=== PATIENT | female | born 1980 | race Caucasian/White ===

== ENCOUNTER 2018-11-15 09:28 | Inpatient (IN) | payer OTHER ==
[~2018-11-15] VITALS: Ht 172.7 cm; Wt 69.1 kg
[2018-11-18 17:44] VITALS: Ht 172.7 cm; Wt 69.1 kg
[2018-11-18] MEDS ORDERED: METHYLERGONOVINE 0.2 MG INJ IM PRN (18:00)
[2018-11-18] MEDS ORDERED: CEFAZOLIN 2 GM/50 ML (PMX) 50 ML IVPB SCH (18:00)
[2018-11-18] MEDS ORDERED: CARBOPROST 250 MCG INJ IM PRN (18:00)
[2018-11-18] MEDS ORDERED: MISOPROSTOL 200 MCG TAB PR PRN ×2 (18:00→22:30)
[2018-11-18] MEDS ORDERED: OXYTOCIN 30 UNITS/LR 500 ML IV PRN (18:00)
[2018-11-18] MEDS: LACTATED RINGER'S 1,000 ML IV SCH (18:17)
[2018-11-18] MEDS ORDERED: LACTATED RINGER'S 1,000 ML IV SCH (22:18)
--- NOTE | 2018-11-18 22:18 | HP ---
Date/Time of Note Date/Time of Note DATE: 11/18/18 TIME: 22:16 OB - History Hx of Present Free Text/Dictation 38 YO with EDC 11/22/2018 with IUP at 39.3 weeks with history of previous delivery, who desires to have repeat delivery and Permanent sterilization. I discussed with the patient the risks, benefits, indications, and alternatives of procedure including but not limited to risks of infection, bleeding, damage to other organs, bowel, bladder, hernia formation, scar formation, possibility of blood transfusion, possible need for emergency hysterectomy, as well as the fact that tubal ligation may fail and there is 1 to 2% risk of failure over lifetime of tubal ligations and the fact that tubal ligation is permanent and irreversible. She was allowed to ask questions. All her questions were answered. Informed consent has been obtained. Care: Good Care Ultrasounds: Normal mid trimester US Obstetrical Complications: None Medical Complications: None Past Family/Social History * Past Medical, Surgical, Family and Obstetric Histories reviewed from chart. OB Admission Exam Physical Exam HEENT: WNL Heart: Rhythm Normal Lungs: Clear, Equal Abdomen: WNL Extremities: Normal Reflexes: Normal Last 72 hours Lab Results CBC & BMP 11/18/18 18:15 OB Assessment/Plan Other Assessment: IUP at 39.3 weeks Desires repeat c/s and BTL Other plan: Repeat c/s and BTL CHERRY NAIR MD Nov 18, 2018 22:18
[2018-11-18] MEDS ORDERED: NA PHOSPHATE/BIPHOS 133 ML ENEMA PR PRN (22:30)
[2018-11-18] MEDS ORDERED: LANOLIN HPA 1 PKT TOP PRN (22:30)
[2018-11-18] MEDS ORDERED: OXYCODONE/ACETAMINOPHEN (5/325) TAB PO PRN (22:30)
--- NOTE | 2018-11-18 22:54 | PREAC ---
Date/Time of Note Date/Time of Note DATE: 11/18/18 TIME: 22:52 Anesthesia Eval and Record Evaluation Time Pre-Procedure Interview DATE: 11/18/18 TIME: 22:52 Age 38 Sex female NPO: 8 hrs Preoperative diagnosis IUP Planned procedure Repeat C/Section Past Medical History Past Medical History: Includes GI: Obesity : : Surgery & Anesthesia Issues No known issue Meds Anticoagulation: No Beta Maldonado within 24 hr: No Reason Beta Maldonado not given: Pt. not on B-Maldonado Current Medications Lactated Ringer's 1,000 ml @ 125 mls/hr Q8H IV Last administered on 11/18/18at 18:17; Admin Dose 125 MLS/HR; Start 11/18/18 at 17:39 Cefazolin Sodium/ Dextrose 50 ml @ 100 mls/hr ONCE IVPB ; Start 11/18/18 at 18:0 0 Oxytocin/Lactated Ringer's 500 ml @ 125 mls/hr POST IV ; Start 11/18/18 at 18:00 Oxytocin/Lactated Ringer's 500 ml @ 0 mls/hr ONCE PRN IV .VAGINAL BLEEDING; Start 11/18/18 at 18:00 Methylergonovine Maleate (Methergine) 0.2 mg ONCE PRN IM .VAGINAL BLEEDING; Start 11/18/18 at 18:00 Carboprost Tromethamine (Hemabate) 250 mcg ONCE PRN IM .VAGINAL BLEEDING; Start 11/18/18 at 18:00 Lactated Ringer's 1,000 ml @ 125 mls/hr Q8H IV ; Start 11/18/18 at 22:18; Stop 11/19/18 at 02:17 Oxycodone/ Acetaminophen (Percocet (5/ 325)) 1 tab Q4H PRN PO .PAIN 4-6; Start 11/18/18 at 22:30 Oxycodone/ Acetaminophen (Percocet (5/ 325)) 2 tab Q4H PRN PO .PAIN 7-10; Start 11/18/18 at 22:30 Ibuprofen (Motrin) 600 mg Q6 PO ; Start 11/19/18 at 00:00 Simethicone (Mylicon) 160 mg Q8H PRN PO .GAS; Start 11/18/18 at 22:30 Senna/Docusate Sodium (Senokot-S) 1 tab BID PO ; Start 11/19/18 at 09:00 Sodium Biphosphate/ Sodium Phosphate (Fleet Enema) 133 ml DAILY PRN [place] .CONSTIPATION; Start 11/18/18 at 22:30 Lanolin (Lanolin Hpa) 1 applic BEDSIDE MEDICATION PRN TOP .NIPPLES; Start 11/18/18 at 22:30 Diphtheria/ Tetanus/Acell Pertussis (Adacel) 0.5 ml ONCE ONCE IM* ; Start 11/21/18 at 09:00; Stop 11/21/18 at 09:01 Measles/Mumps/ Rubella Vaccine Live (Mmr Ii Vaccine) 0.5 ml ONCE ONCE SC* ; Start 11/21/18 at 09:00; Stop 11/21/18 at 09:01 Misoprostol (Cytotec) 1,000 mcg ONCE PRN [place] .VAGINAL BLEEDING; Start 11/18/18 at 22:30 Meds reviewed: Yes Allergies Coded Allergies: No Known Allergy (Unverified , 11/18/18) Allergies Reviewed: Yes Labs/Studies Labs Reviewed: Reviewed by anesthesiologist Result Diagram: 11/18/18 1815 Laboratory Tests 11/18/18 18:15 Blood Bank Test 11/18/18 18:15 Antibody Screen NEGATIVE Blood Type O POSITIVE Rh Immune Globulin Candidate NO test: Positive Studies: ECG Pre-procedure Exam Last vitals BP:112/56, P:84, Spo2:100%, T:98,9 Airway: Adequate mouth opening, Adequate thyromental dist Mallampati: Mallampati II Teeth: Normal Lung: Normal Heart: Normal ASA Physical Status ASA physical status: 2 Emergency: None Planned Anesthetic Neuraxial: Spinal Planned Pain Management Sub-arachniod narcotics, Parenteral pain med Pre-operative Attestations Prior to commencing anesthesia and surgery, the patient was re-evaluated, there was verification of: *The patient's identity *The results of appropriate recent lab work and preoperative vital signs *The above evaluation not changing prior to induction *Anesthetic plan, risk benefits, alternative and complications discussed with patient/family; questions answered; patient/family understands, accepts and wishes to proceed. WALLY BLANCHARD MD Nov 18, 2018 22:54
[2018-11-18] MEDS ORDERED: OXYTOCIN 10 UNIT INJ ONE (23:45)
[2018-11-18] MEDS ORDERED: morphine SULFATE/PF (10 MG/10 ML) INJ ONE (23:45)
[2018-11-18] MEDS ORDERED: ONDANSETRON 4 MG INJ ONE (23:45)
--- NOTE | 2018-11-19 00:56 | OPR ---
Date/Time of Note Date/Time of Note DATE: 11/19/18 TIME: 00:53 Operative Report Procedure Date: Nov 19, 2018 Preoperative Diagnosis Desires repeat deliver and permanent sterilization Postoperative Diagnosis Same Operation/Procedure Performed Repeat Delivery Bilateral Salpingectomies Surgeon Swetha Quinn MD Entry Level [employer]st Dr. Munoz Anesthesia Type: spinal Estimated Blood Loss: other (700 ml) Transfusion none Specimen Segments of bilateral tubes Grafts/Implants none Tubes/Drains Huber Cath Complications none Pt Condition Post Procedure: stable Disposition: PACU Procedure Description DATE OF OPERATION: The risks, benefits, indications, alternatives of procedure including, but not limited to risk of infection, bleeding, damage to other organs, bowel, bladder, hernia formation, scar formation, possibility of blood transfusions, the risks of tubal ligation such as failure and future pregnancies were discussed with the patient. The fact that BTL is permanent and irreversible also discussed with patient. She was allowed to ask questions. All her questions were answered. Informed consent was obtained. DESCRIPTION OF PROCEDURE: She was taken to the operating room. Spinal anesthesia was induced. She was prepped and draped in the usual sterile fashion. Surgical time out one. Anesthesia was tested to be adequate. With permission from anesthesiologist, a knife was used to make a Pfannenstiel skin incision. The incision was taken down in layers. The fascia was cut, undermined and from the underlying muscle using sharp and blunt dissection. All the bleeders were cauterized. Peritoneum was entered bluntly. A low transverse incision was developed over the uterus. Amniotic fluid was clear and adequate. A viable in vertex presentation was delivered without any difficulty. The cord was clamped and cut, handed to awaiting team. Placenta was then delivered. Uterus was exteriorized, wrapped around a moist lap. Inside uterus was cleaned using a dry lap. All residual membranes were removed. The uterine incision was then closed using #1 Monocryl in 2 layers. A 5 cm distal end of the right tube was ligated 3 times using 0 plain tie and the ligated portion was cut, sent to pathology. Same procedure was done on the contralateral side. The uterus was inserted back inside the abdominal cavity. Irrigation was done carefully. Careful evaluation of the uterine incision revealed no further bleeding. The tubal ligation sites were evaluated carefully. There was no bleeding. The peritoneum and rectus muscles and fascia were evaluated. All bleeders cauterized. Peritoneum was closed using 2-0 Monocryl. At this time, the count was correct. Rectus muscle was reapproximated using 2-0 Monocryl. Rectus fascia was closed using #1 Vicryl. Subcutaneous tissue was cleaned and irrigated. All bleeders cauterized and the skin closed using 4-0 Monocryl. All counts correct. SWETHA QUINN MD Nov 19, 2018 00:56
[2018-11-19] MEDS ORDERED: OXYTOCIN 30 UNITS/LR 500 ML BAG IV ONE (01:06)
--- NOTE | 2018-11-19 01:12 | PAC ---
Date/Time of Note Date/Time of Note DATE: 11/19/18 TIME: 01:12 Post-Anesthesia Notes Post-Anesthesia Note Activity: WNL Respiratory function: WNL Cardiovascular function: WNL Mental status: Baseline Pain reasonably controlled: Yes Hydration appropriate: Yes Nausea/Vomiting absent: Yes Comments BP:122/56, P:88, Spo2:100%, T:98.8 WALLY BLANCHARD MD Nov 19, 2018 01:12
[2018-11-19] MEDS ORDERED: NALOXONE (0.4 MG/ML) INJ IV PRN (01:30)
[2018-11-19] MEDS ORDERED: morphine 2 MG INJ IV PRN (01:30)
[2018-11-19] MEDS ORDERED: ONDANSETRON 4 MG INJ IV PRN (01:30)
[2018-11-19] MEDS: LACTATED RINGER'S 1,000 ML IV SCH ×3 (01:39→18:17)
[2018-11-19] MEDS: OXYTOCIN 30 UNITS/LR 500 ML IV SCH ×2 (01:57→05:35)
[2018-11-19] MEDS: KETOROLAC 30 MG INJ IV PRN ×4 (03:09→22:33)
[2018-11-19 03:40] VITALS: BP 137/74; PULSE 57; RESP 18
[2018-11-19] MEDS: DIPHENHYDRAMINE 50 MG INJ IV PRN ×3 (05:23→16:05)
[2018-11-19] MEDS: IBUPROFEN 600 MG TAB PO SCH ×5 (06:00→23:50)
[2018-11-19 08:30] VITALS: BP 113/56; PULSE 62; RESP 18
[2018-11-19] MEDS: SENNA/DOCUSATE NA (8.6MG/50MG) TAB PO SCH ×2 (09:00→20:52)
[2018-11-19 11:30] VITALS: BP 105/60; PULSE 72; RESP 18
[2018-11-19 16:00] VITALS: BP 102/64; PULSE 85; RESP 18
--- NOTE | 2018-11-19 19:24 | QN ---
Documentation Comment s/p c/s Subjective: no complaint Objective: Afebrile, VSS NAD A&O Abdomen: soft, appropriate tender Incision: no sign of bleeding/infection mild lochia Extremity: 1+ edema bilaterally Assessment: S/p C/S POD # 1 Recovering Well Plan: current care CHERRY NAIR MD Nov 19, 2018 19:24
[2018-11-19 20:00] VITALS: BP 90/53; PULSE 76; RESP 19
[2018-11-20] VITALS: BP 104/54; PULSE 73; RESP 18
[2018-11-20] MEDS: LACTATED RINGER'S 1,000 ML IV SCH (01:39)
[2018-11-20 04:00] VITALS: BP 112/61; PULSE 56; RESP 18
[2018-11-20] MEDS: OXYCODONE/ACETAMINOPHEN (5/325) TAB PO PRN ×3 (05:15→23:02)
[2018-11-20] MEDS: IBUPROFEN 600 MG TAB PO SCH ×4 (06:01→23:48)
[2018-11-20 08:00] VITALS: BP 114/59; PULSE 74; RESP 18
[2018-11-20] MEDS: SENNA/DOCUSATE NA (8.6MG/50MG) TAB PO SCH ×2 (10:26→21:35)
--- NOTE | 2018-11-20 15:57 | PN ---
Date/Time of Note Date/Time of Note DATE: 11/20/18 TIME: 15:54 OB Subjective Subjective Subjective POD#2 Patient is doing well. She denies nausea, vomiting, shortness of breath, chest pain, headache. She has been ambulating without difficulty, tolerating regular diet. Pain is well controlled on current medications OB Objective Objective Objective VS - Last 72 Hours, by Label Date Temp Pulse Resp B/P (MAP) Pulse Ox O2 O2 Flow FiO2 Time Delivery Rate 11/20/18 98.0 74 18 114/59 Room Air 08:00 (77) 11/20/18 98.0 56 18 112/61 Room Air 04:00 (78) 11/20/18 98.3 73 18 104/54 Room Air 00:00 (71) 11/19/18 98.4 76 19 90/53 (65) 97 Room Air 20:00 11/19/18 98.1 85 18 102/64 98 Room Air 16:00 (77) 11/19/18 98.0 72 18 105/60 Room Air 11:30 (75) 11/19/18 97.9 62 18 113/56 96 Room Air 08:30 (75) 11/19/18 97.6 57 18 137/74 97 Room Air 03:40 (95) General: AAO X 3, comfortable, NAD, appropriate mood and affect. ABD: +BS. Soft, non-tender. Uterus 2 cm below umbilicus Incision: Clear, dry, intact. No erythema, drainage or induration. Flank: No CVA tenderness (B/L) LE: Mild edema. No clubbing, cyanosis, thigh or calf tenderness (B/L). Homans 'sign is negative OB Assessment/Plan Other plan: 38 years old -0-0-3 s/p repeat delivery and bilateral salpingectomy at 39 weeks and 3 days. POD#2 - AF, VSS - Baby is doing well, at bed side. She is bonding well - Continue care - H/H:34.9 - Discharge home tomorrow - Rx and instruction given - Follow up in one and 6 weeks GABRIELA THIBODEAUX Nov 20, 2018 15:57
--- NOTE | 2018-11-20 15:58 | DS ---
Date/Time of Note Date/Time of Note DATE: 11/20/18 TIME: 15:57 Obstetrical Discharge Record Final Diagnosis Final Diagnosis: Term delivered Other Final Diagnosis 38 years old -0-0-3 s/p repeat delivery and bilateral salpingectomy at 39 weeks and 3 days. POD#2. course was unremarkable. She is ambulating and tolerating regular diet. She is voiding without difficulty. Pain is controlled on current medication. - AF, VSS - Baby is doing well, at bed side. She is bonding well - Continue care - H/H:.9 - Discharge home tomorrow - Rx and instruction given - Follow up in one and 6 weeks Section Section: Repeat Condition on Discharge Physical Assessment Last Vitals: Vital Signs Date Temp Pulse Resp B/P (MAP) Pulse Ox O2 O2 Flow FiO2 Time Delivery Rate 11/20/18 98.0 74 18 114/59 Room Air 08:00 (77) 11/19/18 97 20:00 Voiding: Yes Bowel Movement: Yes Breast: Soft, non-tender Fundus: Firm Calf Tenderness: No Patient Condition: Stable GABRIELA THIBODEAUX Nov 20, 2018 15:58
[2018-11-20 16:00] VITALS: BP 113/61; PULSE 77; RESP 16
[2018-11-20 20:00] VITALS: BP 101/62; PULSE 77; RESP 18
[2018-11-21 04:00] VITALS: BP 106/64; RESP 18
[2018-11-21] MEDS: IBUPROFEN 600 MG TAB PO SCH ×4 (05:44→23:39)
[2018-11-21 08:00] VITALS: BP 113/66; PULSE 80; RESP 18
[2018-11-21] MEDS: OXYCODONE/ACETAMINOPHEN (5/325) TAB PO PRN ×2 (08:32→18:57)
[2018-11-21] MEDS: SENNA/DOCUSATE NA (8.6MG/50MG) TAB PO SCH ×2 (08:32→20:41)
[2018-11-21] MEDS ORDERED: DIPHTH/TET/ACEL PERTUSS (ADULT) 0.5 ML VIAL IM* ONE (09:00)
[2018-11-21] MEDS ORDERED: MEASLES,MUMPS,RUBELLA VACCINE INJ SC* ONE (09:00)
[2018-11-21 16:31] VITALS: BP 129/63; PULSE 66; RESP 18
[2018-11-21 20:25] VITALS: BP 109/61; PULSE 73; RESP 16
[2018-11-22] MEDS: OXYCODONE/ACETAMINOPHEN (5/325) TAB PO PRN ×3 (00:07→15:10)
[2018-11-22 04:00] VITALS: BP 102/61; PULSE 77; RESP 18
[2018-11-22] MEDS: IBUPROFEN 600 MG TAB PO SCH ×2 (05:36→12:49)
[2018-11-22 08:00] VITALS: BP 114/64; PULSE 95; RESP 18
[2018-11-22] MEDS: SENNA/DOCUSATE NA (8.6MG/50MG) TAB PO SCH (08:03)
--- NOTE | 2018-11-23 15:46 | DELSUM ---
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 Babies in Womb: 1 Attempted: No Labor Anesthesia: None LABOR INFORMATION Reason for Induction: Not Applicable Group B Beta Strep: Negative Antibiotics # of Doses: 1 Antibiotics Time of Last Dose: 11/18/2018 23:59 Steroids Given: None Reason Steroids Not Administered: Not Applicable MEMBRANES Membranes Rupture Method: Artificial Rupture of Membranes: 11/19/2018 00:19 Length of Rupture (hr): 0.00 Amniotic Fluid Color: Clear Amniotic Fluid Amount: Moderate Amniotic Fluid Odor: None STAGES OF LABOR Stage 3 hr: 0 Stage 3 min: 1 CSECTION DELIVERY Primary Indication: Repeat Elective Secondary Indication: N/A CSection Urgency: Elective CSection Incidence: Repeat Labor: No Labor Elective: N/A CSection Incision: Lower Uterine Transverse Sterilization Procedure: Arslan BABY A INFORMATION Delivery Date/Time: 11/19/2018 00:19 Method of Delivery: Born in Route : No : N/A Forceps: N/A Vacuum Extraction: N/A Shoulder Dystocia : N/A SHOULDER DYSTOCIA BABY A Infant Delivery Date/Time: 11/19/2018 00:19 PRESENTATION/POSITION BABY A Presentation: Cephalic Cephalic Presentation: Vertex Vertex Position: Left Occipital Anterior Breech Presentation: N/A PLACENTA INFORMATION BABY A Placenta Delivery Time : 11/19/2018 00:20 Placenta Method of Delivery: Manual Removal Placenta Status: Delivered SCORES BABY A Heart Rate 1 min: >100 bpm Resp Effort 1 min: Good Cry Reflex Irritability 1 min: Cough/Sneeze/Pulls Away Muscle Tone 1 min: Active Motion Color 1 min: Body Erda, Extremit Blue Resuscitation Effort 1 min: Tactile Stimulation SCORE 1 MIN: 9 Heart Rate 5 min: >100 bpm Resp Effort 5 min: Good Cry Reflex Irritability 5 min: Cough/Sneeze/Pulls Away Muscle Tone 5 min: Active Motion Color 5 min: Body Erda, Extremit Blue Resuscitation Effort 5 min: Tactile Stimulation SCORE 5 MIN: 9 INFORMATION BABY A Gestational Age at Delivery: 39.4 Gestational Status: Full Term- 39- 40.6 Weeks Outcome : Liveborn, with signs of life Condition : Stable Infant Sex: Female IDENTIFICATION/MEDS BABY A ID Band Number: [id number] ID Band Location: Right Leg; Left Arm Sensor Applied: Yes Sensor Number: [id number] Sensor Location : Cord Clamp Vitamin K Given : Not Given Erythromycin Given: Not Given WEIGHT/LENGTH BABY A Birthweight (gm): 3240 Infant Weight (lb): 7 Infant Weight (oz): 2 Length (in): 19.00 Infant Length (cm): 48.26 CORD INFORMATION BABY A No. Cord Vessels: 3 Nuchal Cord : N/A Cord Blood Taken: Yes Suction: Mouth; Nose ASSESSMENT BABY A Complications: None Physical Findings at Delivery: Within Normal Limits Infant Respirations: Appears Normal Clinical Trials Assistant/ALS Called : Yes Infant Care By: / Mahi WALLER Transferred To: Remains with Mother
== END 2018-11-22 15:46 | disposition home or self-care (01) | DRG 785 ==
LOC: EDSTATUS 17:30 → L-D 11-18 17:30 → PP1 11-19 03:34
PROVIDERS: ADMIT Specialist; ATTEND Specialist
PROC: 10D00Z1 Extraction of Products of Conception, Low, Open Approach (ICD-10-PCS; principal; 2018-11-18)
PROC: 0UT70ZZ Resection of Bilateral Fallopian Tubes, Open Approach (ICD-10-PCS; 2018-11-18)
DX: O65.5 Obstructed labor due to abnormality of maternal pelvic organs (principal); O99.214 Obesity complicating childbirth; O34.211 Maternal care for low transverse scar from previous cesarean delivery; Z3A.39 39 weeks gestation of pregnancy; Z37.0 Single live birth; Z30.2 Encounter for sterilization
CPT/HCPCS: 85025; 85610; 85730; 86592; 86850; 86900; 86901; 87340; 88302; 99464; J0690; J1200; J1885; J2274; J2405; J2590; J7120